=== PATIENT | female | born 1940 | race Caucasian/White ===

== ENCOUNTER 2024-12-29 00:53 | Emergency (ER) | payer MEDICARE, BC, SELFPAY ==
[2024-12-29 01:19] VITALS: BP 132/82
[2024-12-29 02:41] VITALS: BP 99/54
[2024-12-29] MEDS: TORADOL 15 MG IM ×2 (03:34→05:35)
--- NOTE | 2024-12-29 05:55 | ED.GENMED ---
ED Provider Triage
<Titi Molina MD, Resident - Last Filed: 12/29/24 07:12>
-
Patient seen by provider in Triage?: Seen in Triage
History of Present Illness
<Titi Molina MD, Resident - Last Filed: 12/29/24 07:12>
General
Chief Complaint: Back Pain
Source: patient and spouse
Exam Limitations: none
Time Seen by Provider: 12/29/24 05:44
History of Present Illness
History of Present Illness:
84-year-old female who presents with gradual severe dull lower back pain since last Monday. Pain is associated with spasms. Aggravated on movement and relieved on rest. she went on a long road trip spanning over 2 days to [place] with her
and at the end of the trip is when the symptoms of the lower back pain started. No radiation, numbness, tingling, weakness, urinary retention, saddle anesthesia, preceding trauma, sudden movement/lifting, chest pain, shortness of breath, fever,
chills. She has had a similar clinical presentation of this pain before during long car rides however not to this extent.
Past History
<Titi Molina MD, Resident - Last Filed: 12/29/24 07:12>
Past History
ED Past Medical History: Arrthythmia (Atrial fib), GERD, HTN, Hypercholesterolemia, NIDDM, Hypothyroidism, Psychiatric (Anxiety, Depression, ) and Other (Dementia, Essential tremors, Asthma, IBS, UTI, Anemia, Left breast tumor)
ED Past Surgical History: Cardiac (Pacemaker, Ablation, Watchman, ), Cholecystectomy, Orthopedic (carpal tunnel, Left knee replacement) and Other (Thyroidectomy)
Social History
Tobacco: Former smoker
Alcohol: None
Drug: None
Personal:
Living: with family
Review of Systems
<Titi Molina MD, Resident - Last Filed: 12/29/24 07:12>
Review of Systems
Allergies reviewed?: Yes
All Other Systems: ROS reviewed and negative except as documented in HPI and ROS
Phy Exam
<Titi Molina MD, Resident - Last Filed: 12/29/24 07:12>
General Physical Exam
General Presentation: well appearing and no apparent distress
General Skin: warm and dry
General Habitus: normal
General Mental: alert
Cardiovascular Exam
Cardiovascular Exam: regular rate/rhythm and no edema
Pulmonary Exam
Pulmonary Exam: lungs clear and no respiratory distress
Gastrointestinal Exam
Gastrointestinal Exam: normal bowel sounds, non tender, soft and non distended
Neurological Exam
Neurological Exam: alert and oriented x3
Musculoskeletal Exam
Musculoskeletal Exam: other (Inspection of the back shows no visible deformities or bruising. There is paravertebral tenderness of the lower lumbar back of muscles bilaterally. No spinal tenderness to palpation. Limited range of movement in
extension, flexion, rotation of back due to pain.)
Course
<Titi Molina MD, Resident - Last Filed: 12/29/24 07:12>
Orders/Labs/Results
Orders:
Orders
12/29/24 03:23
Ketorolac [Toradol] 15 mg .ROUTE .STK-MED ONE
12/29/24 03:31
Ketorolac [Toradol] 15 mg IM NOW STA
12/29/24 05:34
Ketorolac [Toradol] 15 mg IM NOW STA
12/29/24 06:09
Cyclobenzaprine HCl [Flexeril] 10 mg PO NOW STA
12/29/24 06:11
Cyclobenzaprine HCl [Flexeril] 5 mg PO NOW STA
12/29/24 08:00
Lidocaine [Lidocaine 4% Patch] 1 patch TOPICAL DAILY
Apply Lidocaine patch(s) to:: lower back
Vital Signs
Initial and Last Documented VS:
Initial Vital Signs
Temp Pulse Resp BP Pulse Ox
98.3 F 105 20 132/82 97
12/29/24 01:19 12/29/24 01:19 12/29/24 01:19 12/29/24 01:19 12/29/24 01:19
Last Documented Vital Signs
Temp Pulse Resp BP Pulse Ox
98.3 F 105 20 99/54 98
12/29/24 01:19 12/29/24 01:19 12/29/24 01:19 12/29/24 02:41 12/29/24 06:05
<Garcia Torres, DO - Last Filed: 12/29/24 07:05>
Orders/Labs/Results
Orders:
Orders
12/29/24 03:23
Ketorolac [Toradol] 15 mg .ROUTE .STK-MED ONE
12/29/24 03:31
Ketorolac [Toradol] 15 mg IM NOW STA
12/29/24 05:34
Ketorolac [Toradol] 15 mg IM NOW STA
12/29/24 06:09
Cyclobenzaprine HCl [Flexeril] 10 mg PO NOW STA
12/29/24 06:11
Cyclobenzaprine HCl [Flexeril] 5 mg PO NOW STA
12/29/24 08:00
Lidocaine [Lidocaine 4% Patch] 1 patch TOPICAL DAILY
Apply Lidocaine patch(s) to:: lower back
Vital Signs
Initial and Last Documented VS:
Initial Vital Signs
Temp Pulse Resp BP Pulse Ox
98.3 F 105 20 132/82 97
12/29/24 01:19 12/29/24 01:19 12/29/24 01:19 12/29/24 01:19 12/29/24 01:19
Last Documented Vital Signs
Temp Pulse Resp BP Pulse Ox
98.3 F 105 20 99/54 98
12/29/24 01:19 12/29/24 01:19 12/29/24 01:19 12/29/24 02:41 12/29/24 06:05
<Titi Molina MD, Resident - Last Filed: 12/29/24 07:12>
MDM/Problems Addressed
Differential Diagnosis Includes:
Musculoskeletal strain, lumbar radiculopathy, pulmonary embolism, spinal stenosis, muscle spasm
MDM/Problems Addressed:
- Will order a lidocaine patch and Flexeril for pain and muscle spasms
Will discharge patient home with tramadol and a lidocaine patch for pain. Follow up with PCP in 5 days.
<Titi Molina MD, Resident - Last Filed: 12/29/24 07:12>
*Pulse Oximetry
SaO2: 98
Oxygen Mode of Delivery: Room air
Patient hypoxic: no
*Critical Care Note
Total Time (30-74mins, 75-104mins- exclusive of procedures): Not Applicable
ED Attending Note
<Titi Molina MD, Resident - Last Filed: 12/29/24 07:12>
-
Portions of this chart may have been created with voice recognition software.� Occasional wrong word or��sound alike� substitutions may have occurred due to the inherent limitations of voice recognition software.
<Garcia Torres, DO - Last Filed: 12/29/24 07:05>
ED Attending Note
Patient seen and examined by attending physician: Yes
I performed the substantive portion of visit, reviewed & personally made and approve the management plan that is documented in note by myself or ERWIN.: Yes
ED Attending Note:
Note:
CHIEF COMPLAINT(S)
back pain after long road trip
HISTORY OF PRESENT ILLNESS
The patient is an 84-year-old female who is experiencing improvement after feeling unwell, which might have been attributed to her medication regimen. She reported feeling better with a gradual alleviation of symptoms. The patient mentioned recently
traveling from [place],to [place]. She expressed concern about having home medications and was reassured that prescriptions for Tramadol and patches would be sent to her preferred pharmacy on [address].
PHYSICAL EXAM
General: Alert, no acute distress.
Skin: Warm, dry.
Head: Normocephalic, atraumatic.
Neck: Supple, trachea midline.
Eye Ears, nose, mouth and throat: Oral mucosa moist.
Cardiovascular: Normal peripheral perfusion, No edema.
Respiratory: Respirations are non-labored.
Gastrointestinal: Abdomen nondistended.
Back: Normal range of motion, Normal alignment.
Musculoskeletal: Normal ROM, normal strength.
Neurological: Alert and oriented to person, place, time, and situation, No focal neurological deficit observed.
Psychiatric: Cooperative, appropriate mood & affect.
PLAN
Prescribed Tramadol and patches for pain management, with prescriptions to be sent to the requested pharmacy on [address].
DIFFERENTIAL DIAGNOSIS
The Differential Diagnosis includes, in no particular order and is not limited to:
1. low back pain
2. Chronic pain syndrome
3. Osteoarthritis
4. Neuropathic pain
5. Fibromyalgia
6. Depression-related somatic symptoms
7. Pain secondary to recent travel
8. Degenerative joint disease
9. Rheumatoid arthritis
10. Polymyalgia rheumatica
Discharge Plan
Departure
Patient Disposition: Home (Routine Discharge)
Date of Disposition: 12/29/24
Time of Disposition: 06:59
Patient with high blood pressure during this ER visit?: No
Condition: Fair
Discharge Problem:
Musculoskeletal back pain
Discharge Problem:
(Ruled Out): Nausea
Instructions: Low Back Pain (DC)
Prescriptions:
New
tramadol 25 mg tablet
25 mg PO Q6H PRN (Reason: Pain) Qty: 20 0RF
lidocaine 4 % adhesive patch,medicated
1 patch topical DAILY PRN (Reason: pain) Qty: 10 0RF
No Action
atorvastatin 20 mg Tablet
20 mg PO QPM
pioglitazone 45 mg Tablet
45 mg PO DAILY
aspirin 81 mg Tablet,Delayed Release (Dr/Ec)
81 mg PO DAILY
levothyroxine 100 mcg Tablet
100 mcg PO DAILY AT 0700
pantoprazole 40 mg Tablet,Delayed Release (Dr/Ec)
40 mg PO BID
metoprolol tartrate 25 mg Tablet
12.5 mg PO BID
cholecalciferol (vitamin D3) [Vitamin D3] 25 mcg (1,000 unit) Tablet
50 mcg PO QPM
melatonin 3 mg Tablet
3 mg PO HS
ondansetron 4 mg tablet,disintegrating
4 mg PO Q6HPRN PRN (Reason: nausea and vomiting) Qty: 20 0RF
loperamide 2 mg Capsule
2 mg PO Q6H PRN (Reason: diarrhea)
alprazolam 0.25 mg Tablet
0.25 mg PO Q8HPRN PRN (Reason: anxiety) Qty: 7 0RF
Referrals:
UNKNOWN,NO INTERVIEW [Family Provider]
Activity Restrictions/Additional Instructions:
Please follow up with PCP within 5 days. Take pain medication as directed.
1. Please schedule a follow up appointment as directed. Call first thing tomorrow morning to make an appointment.
2. If indicated, please take your medications as instructed and indicated on discharge paperwork.
3. If any of your symptoms do not improve, or persist, or become more severe within 6-12 hours, please return to the emergency department for further care.
4. Please return to the emergency department if you develop a headache, neck pain/stiffness, fever greater than 100.4F, chest pain, shortness of breath, persistent nausea, vomiting, slurred speech, difficulty walking, numbness/tingling, weakness,
signs of infection or any other symptoms that are worrisome to you.
Please call [phone] if you have any questions
Interventions
Interventions:
*Risk Screen - Suicide Last Done: 12/29/24 01:19
*General Assessment Last Done: 12/29/24 01:19
*Neglect/Abuse Screening Last Done: 12/29/24 01:19
*ED- Fall Risk Assessment Last Done: 12/29/24 01:19
*ED COVID-19 Vaccine History Last Done: 12/29/24 01:19
*ED Influenza Vaccine History Last Done: 12/29/24 01:19
ED-Musculoskeletal Assessment Last Done: 12/29/24 02:45
Discharge Date and Time
Print Language: GABONESE
[2024-12-29] MEDS: FLEXERIL 5 MG PO (06:17)
== END 2024-12-29 07:37 | disposition home or self-care (01) ==
LOC: EMR 00:53
PROVIDERS: EMERGENCY PHYSICIAN Student in an Organized Health Care Education/Training Program
DX: M54.50 Low back pain, unspecified (principal); E03.9 Hypothyroidism, unspecified; E11.9 Type 2 diabetes mellitus without complications; E78.00 Pure hypercholesterolemia, unspecified; I10 Essential (primary) hypertension; F03.90 Unspecified dementia, unspecified severity, without behavioral disturbance, psychotic disturbance, mood disturbance, and anxiety; I48.91 Unspecified atrial fibrillation; J45.909 Unspecified asthma, uncomplicated; Z87.891 Personal history of nicotine dependence
CPT/HCPCS: 96372; 99284